=== PATIENT | male | born 1995 | race Hispanic/Latino ===

== ENCOUNTER 2020-07-25 21:35 | Emergency (ER) | payer OTHER ==
--- NOTE | 2020-07-26 07:17 | RAD ---
AISHAB: Date: 07/25/2020 COMPARISON: None. HISTORY: Swallowed two razor blades. FINDINGS: Single view of the abdomen shows a nonspecific, nonobstructed bowel gas pattern. No obvious radiopaqu e foreign body is seen in the abdomen. There is moderate stool in the transverse colon which slightly limits evaluation of the stomach. IMPRESSION: No radiopaque foreign body identified in the abdomen. POS: [facility]
== END 2020-07-25 22:26 ==
LOC: NAV ER/OP 21:35 → EEVIPCON 21:35 → NAV ER/OP 22:26
DX: Z03.89 Encounter for observation for other suspected diseases and conditions ruled out (principal); I10 Essential (primary) hypertension; E03.9 Hypothyroidism, unspecified; F41.9 Anxiety disorder, unspecified; F32.9 Major depressive disorder, single episode, unspecified; F43.10 Post-traumatic stress disorder, unspecified; F17.210 Nicotine dependence, cigarettes, uncomplicated; Z79.899 Other long term (current) drug therapy
CPT/HCPCS: 74018